=== PATIENT | female | born 2000 | race Caucasian/White ===

== ENCOUNTER → 2021-07-13 13:22 | Outpatient (BNVA) | payer MEDICAID, SELFPAY | PROVIDERS: Visit Provider Psychiatry & Neurology Psychiatry | DX: F43.12 Post-traumatic stress disorder, chronic (principal); F60.3 Borderline personality disorder; F33.2 Major depressive disorder, recurrent severe without psychotic features | CPT/HCPCS: 99204 ==

== ENCOUNTER 2022-05-05 23:16 | Emergency (ER) | payer BC, MEDICAID, SELFPAY ==
[2022-05-05 23:39] VITALS: BP 133/81; PULSE 122; RESP 18; TEMP 37.3; O2SAT 100; BMI 26.7
[2022-05-06 00:30] VITALS: BP 104/79; PULSE 112; RESP 16; O2SAT 100
--- NOTE | 2022-05-06 00:56 | XRR_ITS ---
PROCEDURE INFORMATION: Exam: XR Abdomen Exam date and time: 05/06/2022 1:31 AM Age: 22 years old Clinical indication: Abdominal pain; Localized; Left; Additional info: Left abdominal pain, recently constipated more TECHNIQUE: Imaging protocol: Radiologic exam of the abdomen. Views: Frontal supine view of the abdomen. 1 View. COMPARISON: No relevant prior studies available. FINDINGS: Gastrointestinal tract: There are no abnormally dilated loops of small bowel. There is moderate fecal stasis throughout the ascending and proximal transverse colon. The descending colon sigmoid are decompressed and contains a small amount of gas. Intraperitoneal space: There is no free air. There is an oblong density overlying the mid abdomen, spanning the entire diameter of the abdomen, likely outside of the patient and possibly part of the patient's garments. Bones/joints: Unremarkable. XR/XR abdomen 1V* [id number] IMPRESSION: 1. A nonobstructive bowel gas pattern. 2. Moderate fecal stasis throughout the ascending and proximal transverse colon.
--- NOTE | 2022-05-06 00:57 | ED_ITS ---
HPI - Abdominal Pain General: Chief Complaint: Abdominal Pain Stated Complaint: abdomen pain Time Seen by Provider: 05/06/22 00:16 Source: patient Mode of arrival: ambulatory Limitations: no limitations History of Present Illness: Patient presents emergency department today accompanied by her mother for evaluation treatment of left-sided abdominal pain. Patient states she has been having symptoms now for couple of days but denies any nausea, vomiting, or diarrhea. She actually indicates that she seems to be more constipated and while she has the urge to have a bowel movement, will often have to sit 20 to 30 minutes before passing any stool. She reports stool is hard and often in small balls. Patient does not typically drink any water. She reports primarily soda intake through the day. She denies any coffee but an occasional energy drink. Patient is still passing gas. She denies dysuria. Associated Symptoms: Reports constipation; Denies diarrhea and vomiting Review of Systems General: Reports: 10 or more systems reviewed and unremarkable except in HPI and below GI: Reports: abdominal pain (left side) and constipation; Denies: vomiting or diarrhea PFSH ED PFSH: Family History Denies family history of Colon cancer Ovarian cancer Diabetes Heart disease Hypercholesteremia Breast cancer Hypertension Uterine cancer Thyroid disease Stroke Physical Exam Const: COMMON NORMALS: no acute distress, patient oriented x3 and alert HENMT: COMMON NORMALS: normocephalic, atraumatic, hearing grossly normal bilaterally and moist oral mucous membranes HEAD & SCALP: normocephalic and atraumatic Eye: COMMON NORMALS: Equal, round and reactive pupils present, EOMs intact bilaterally and conjunctivae normal CONJUNCTIVA: Yes conjunctivae normal PUPIL: Yes Equal, round and reactive pupils present Neck/C-Spine: COMMON NORMALS: full ROM and no JVD Lymph: LYMPHATIC: no lymphadenopathy noted Resp: COMMON NORMALS: normal respiratory effort, No retractions, No use of accessory muscles and clear to auscultation bilaterally AUSCULTATION: clear to auscultation bilaterally Cardio: COMMON NORMALS: no JVD, regular rate and regular rhythm RATE: regular rate RHYTHM: regular rhythm GI: OTHER: Bowel sounds are present but slow. Patient is tender along the left abdomen without periumbilical pain, epigastric pain, right upper quadrant pain, right lower quadrant pain. Abdomen is soft. : COMMON NORMALS: Yes no CVA tenderness BLADDER/KIDNEY EXAM: Yes no CVA tenderness Back/Pelvis: COMMON NORMALS: no CVA tenderness, no thoracic nor lumbar tenderness and thoraco-lumbar ROM normal Extremity: COMMON NORMALS: normal to inspection, full ROM and capillary refill normal Neuro: COMMON NORMALS: patient oriented x3 SENSORIUM/ORIENTATION: Yes alert Psych: COMMON NORMALS: mental status grossly normal, Normal thought process present, cooperative, normal affect and activity/motor behavior normal THOUGHT PROCESS: Normal thought process present Skin: COMMON NORMALS: no rashes or lesions noted and no wounds GENERAL SKIN EXAM: no rashes or lesions noted Course Vital Signs: Vital signs: Vital Signs Temperature 99.1 F 05/05/22 23:39 Pulse Rate 112 H 05/06/22 00:30 Respiratory Rate 16 05/06/22 00:30 Blood Pressure 104/79 05/06/22 00:30 Pulse Oximetry 100 05/06/22 00:30 MDM - Abdominal Pain Medical Decision Making Patient presents to the emergency department today for evaluation treatment of left-sided abdominal pains. Patient had no urinary complaints and has not been running any fevers. She had had no vomiting but reported some concerns for constipation. Patient has very little clear fluid intake throughout the day per her report. Urinalysis is completely unremarkable for any acute concerns of kidney stone or UTI. X-ray shows circular balls of stool throughout the left colon and a large amount of accumulated stool in the right mid abdomen as well. Patient was given a prescription for MiraLAX. Encouraged multiple doses for the next day or 2 but, patient also needs to increase her clear fluid intake. Explained that without increase in fluid, this treatment will not work. Patient may wish to also do maintenance dosing with a capful every other day if needed. Patient was told to be seen and reevaluated again if she developed any back pain, vomiting, or fevers. Patient verbalized understanding and agreement to treatment plan. Differential Diagnosis Likely abdominal pain (UTI, pyelo), acute appendicitis, calculus of kidney, constipation and gastroenteritis Lab Data Labs/Radiology: Laboratory Results Urine Color Yellow (Yellow) 05/06/22 00:57 Urine Appearance Clear (CLEAR) 05/06/22 00:57 Urine pH 5 (5-7) 05/06/22 00:57 Ur Specific [place] 1.020 (1.005-1.030) 05/06/22 00:57 Urine Protein Neg (Negative) 05/06/22 00:57 Urine Glucose (UA) Norm (Normal) 05/06/22 00:57 Urine Ketones Negative (Negative) 05/06/22 00:57 Urine Blood Neg (Negative) 05/06/22 00:57 Urine Nitrate Negative (Negative) 05/06/22 00:57 Urine Bilirubin Neg (Negative) 05/06/22 00:57 Urine Urobilinogen Neg mg/dL (Negative) 05/06/22 00:57 Ur Leukocyte Esterase Negative (Negative) 05/06/22 00:57 Urine HCG, Qual Negative (Negative) 05/06/22 00:57 Discharge Plan Discharge Patient Disposition: Home Clinical Impression: Abdominal pain, Constipation Condition: Stable Prescriptions: New polyethylene glycol 3350 17 gram/dose powder 17 g PO DAILY Qty: 238 0RF No Action fluoxetine [Prozac] 20 mg capsule 20 mg PO DAILY Qty: 30 1RF trazodone 50 mg tablet 100 mg PO .HS PRN (Reason: insomnia) Qty: 60 1RF Discharge Orders: Discharge ED (Routine); Ordered 05/06/22 Ordered By: Abeba Angelo Referrals: Chrissie Sidhu MD [Primary Care Provider] - Discharge Diet: As Directed Discharge Activity: Increase activity as tolerated Patient Instructions: Constipation - Adult, High Fiber Diet (ED), Abdominal Pain (ED) Activity Restrictions/Additional Instructions: Urine is clear for any concerns of infection or kidney infection. X-ray today does show quite a bit of constipation throughout the length of your colon. I have prescribed you some medication to help facilitate bowel movements. Mix 1 capful of the MiraLAX into 8 ounces of clear liquids and drink all 8 ounces within 15 minutes. Do this 3 times a day. You need to increase your clear fluid intake in between these doses as reintroduction of water into the colon is how this medication works. Do this regimen for 2 days-unless you begin having multiple, regular soft bowel movements. After that, you may wish to have a dose every other day to promote regularity. Coding Level of Care Code ED Aging Department Supervisor for Arik Hendrix
[2022-05-06 01:04] LABS: Add Urine Microscopic? NO; Charge for UA Resulting for Rev
[2022-05-06 01:14] LABS: Bilirubin Urine Neg (Negative); Blood Urine Neg (Negative); Glucose Urine UA Norm (Normal); Ketones Urine Negative (Negative); Leukocyte Esterase Urine Negative (Negative); Nitrate Urine Negative (Negative); Protein Urine Neg (Negative); Urine Appearance Clear (CLEAR); Urine Color Yellow (Yellow); Urobilinogen Urine Neg (Negative); pH Urine 5 (5-7)
[2022-05-06 02:00] VITALS: BP 116/75; PULSE 97; RESP 16; O2SAT 99
== END 2022-05-06 02:06 | disposition home or self-care (01) ==
PROVIDERS: Emergency Provider Physician Assistant; PCP Family Medicine
DX: K59.00 Constipation, unspecified (principal); E11.9 Type 2 diabetes mellitus without complications; I11.0 Hypertensive heart disease with heart failure; I50.9 Heart failure, unspecified; E78.00 Pure hypercholesterolemia, unspecified; Z86.73 Personal history of transient ischemic attack (TIA), and cerebral infarction without residual deficits
CPT/HCPCS: 74018; 81003; 81025; 99283

== ENCOUNTER 2022-06-13 14:27 | Emergency (ER) | payer BC, MEDICAID, SELFPAY ==
[2022-06-13 14:58] VITALS: BP 128/83; PULSE 96; RESP 17; TEMP 37.2; O2SAT 99; BMI 27.6
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
[2022-06-13 15:28] VITALS: BP 122/70; PULSE 89; RESP 16; O2SAT 100
== END 2022-06-13 16:57 | disposition home or self-care (01) ==
PROVIDERS: Emergency Provider Physician Assistant; PCP Family Medicine
DX: S09.8XXA Other specified injuries of head, initial encounter (principal); W50.0XXA Accidental hit or strike by another person, initial encounter
CPT/HCPCS: 70450; 99284

== ENCOUNTER 2023-01-23 08:50 | Outpatient (CLI) | payer BC, MEDICAID, SELFPAY ==
--- NOTE | 2023-01-23 08:57 | US_ITS ---
WS: [id number] EARLY OBSTETRICAL ULTRASOUND (<14 WEEKS). HISTORY: SUPERVISION OF NORMAL FIRST /FIRST TRIMESTER COMPARISON: None available. Single intrauterine gestational sac is identified. Cardiac activity at [address] [place]-rump length kami sures 6.5 cm which corresponds to a gestation of 12w6d. Normal-appearing yolk sac and amnion demonstr ated. No subchorionic hemorrhage. No free fluid. Corpus luteal cyst RIGHT ovary measures 0.9 x 1.2 x 1.2 cm. IMPRESSION: 1. Single intrauterine gestation of 12 weeks 6 days with an EDC of 08/01/2023. 2. Normal cardiac activity.
== END 2023-01-23 08:51 | disposition home or self-care (01) ==
LOC: RAD 08:51
PROVIDERS: PCP Family Medicine; Visit Provider Family Medicine
DX: Z34.01 Encounter for supervision of normal first pregnancy, first trimester (principal)
CPT/HCPCS: 76801

== ENCOUNTER 2023-03-07 08:31 | Outpatient (CLI) | payer MEDICAID, SELFPAY ==
--- NOTE | 2023-03-07 08:37 | US_ITS ---
WS: [id number] OBSTETRICAL ULTRASOUND COMPLETE HISTORY: ANATOMY CHECK COMPARISON: 01/23/2023 Single intrauterine gestation in Cephalic presentation. Cervix is Closed and normal length. Cervical length is 4.9 cm. Normal amount of amniotic fluid surrounds the fetus. Placenta: Anterior, no previa or abruption. Placenta grade 0 Heart: 157 BPM. Four chambers are identified. Outflow tracts are not visualized. This is due to posit ion of the fetus and activity. Anatomy: Intracranial structures and spine are normal. kidneys, stomach and urinary bladd er are unremarkable. Abdominal wall, three-vessel cord and cord insertion site are normal. 4 extremities are present. profile: Not visualized. Gender: Female. measurements: BPD = 4.3 cm = 19w0d; HC = 16.0 cm = 18w6d; AC = 13.3 cm = 18w6d; FL = 2.9 cm = 19w0d; EFW: 262 g. Biometry is internally concordant. AGA by ultrasound: 19w0d MANAV by ultrasound: 08/01/2023 IMPRESSION: 1. Single intrauterine gestation of 19w0d with an MANAV of 08/01/2023. Appropriate growth since the rst trimester ultrasound. 2. Cardiac outflow tracts and profile are not well visualized. The remaining anatomy is normal .
== END 2023-03-07 08:32 | disposition home or self-care (01) ==
LOC: RAD 08:31
PROVIDERS: PCP Family Medicine; Visit Provider Family Medicine
DX: Z34.02 Encounter for supervision of normal first pregnancy, second trimester (principal)
CPT/HCPCS: 76805

== ENCOUNTER 2023-03-25 14:14 | Outpatient (CLI) | payer MEDICAID, SELFPAY ==
--- NOTE | 2023-03-25 14:21 | US_ITS ---
WS: [id number] ULTRASOUND OB FOCUSED HISTORY: Incomplete anatomy scan. COMPARISON: 03/07/2023 and 01/23/2023 Single intrauterine gestation is present in cephalic presentation. Normal amniotic fluid. heart rate at 159 BPM. Additional imaging of the profile is normal. Four-chamber heart is normal. Both outflow tracts are normal. IMPRESSION: Follow-up imaging of the heart and profile demonstrates no abnormality.
== END 2023-03-25 14:15 | disposition home or self-care (01) ==
LOC: RAD 14:14
PROVIDERS: PCP Family Medicine; Visit Provider Family Medicine
DX: Z36.2 Encounter for other antenatal screening follow-up (principal)
CPT/HCPCS: 76816

== ENCOUNTER 2023-07-24 13:20 | Inpatient (IN) | payer MEDICAID, SELFPAY ==
[2023-07-24] VITALS (21 sets, daily range): BP systolic 113–142; BP diastolic 70–88; PULSE 83–127; RESP 16–18; TEMP 35.9–36.1; BMI 33.9
[2023-07-24 12:07] LABS: Add Urine Microscopic? NO; Charge for UA Resulting for Rev
[2023-07-24 12:11] LABS: Basophils % 0.3 %; Eosinophils # 0.1 10^3/uL (0.0-0.8); Eosinophils % 0.5 %; Lymphocytes % 13.1 %; Mean Corpuscular HGB Conc 31.8 g/dL (30-55); Mean Corpuscular Volume 72.5 fl (85-98); Mean Platelet Volume 9.2 fL (7.4-10.4); Monocytes # 0.7 10^3/uL (0.2-0.9); Monocytes % 4.3 %; Neutrophils # 12.37 10^3/uL (1.8-7.7); Neutrophils % 80.8 %; Nucleated Red Blood Cells % 0 %; Platelet Count 355 10^3/cmm (157-399); Red Blood Count 4.69 10^6/uL (3.85-5.65); Red Cell Distribution Width 15.2 % (12.1-15.1)
[2023-07-24 12:31] LABS: Alanine Aminotransferase 9 U/L (0-33); Albumin Level 3.7 g/dL (3.5-5.2); Alkaline Phosphatase 186 U/L (35-105); Anion Gap 18.2 (5-19); Aspartate Amino Transferase 11 U/L (0-32); Blood Urea Nitrogen 5 mg/dL (6-20); Calcium 8.8 mg/dL (8.5-10.5); Carbon Dioxide 19 mmol/L (22-29); Chloride 104 mmol/L (98-107); Creatinine Clr Calc Pharmacy 230.4992; Globulin 3.3 g/dL (1.3-4.6); Glomerular Filtration Rate 199.6 mL/min (90-130); Glucose 127 mg/dL (65-115); Osmolality Calculated 283 mOsm/kg (285-295); Potassium 4.2 mmol/L (3.5-5.1); Sodium 137 mmol/L (136-145); Total Bilirubin 0.2 mg/dL (0.15-1.2); Uric Acid 3.5 mg/dL (2.4-5.7)
[2023-07-24 12:32] LABS: Urine Appearance Clear (CLEAR); Urine Color Yellow (Yellow); pH Urine 7 (5-7)
[2023-07-24 12:33] LABS: Bilirubin Urine Neg (Negative); Blood Urine Neg (Negative); Glucose Urine UA Norm (Normal); Ketones Urine Negative (Negative); Leukocyte Esterase Urine Negative (Negative); Nitrate Urine Negative (Negative); Protein Urine Neg (Negative); Specific Gravity, Urine 1.005 (1.005-1.030); Urobilinogen Urine Neg (Negative)
[2023-07-24 12:42] LABS: Urine Creatinine 87 mg/dL (28-217)
[2023-07-24 12:43] LABS: UPRO/UCREAT Ratio 0.34 mg/mg CR; Urine Protein Random 30 mg/dL
--- NOTE | 2023-07-24 13:05 | P.HP_ITS ---
Providers/Chief Complaint 2 Admitting Physician: Natalia Allen DO Primary Care Provider: Chrissie Sidhu MD Chief Complaint: High Blood Pressure in office HPI DERMATOLOGY NURSE History of Present Illness Bridgette Moore is a 23 year old female at 39w 5d based on sure LMP c/w 12wk US presenting for induction of labor. She was seen in office today and noted to have borderline elevated blood pressure. On presentation to L&D for pre-eclampsia work-up initial BP was elevated and urine protein/creatinine ratio was elevated at 0.3. Past medical history significant for history of depression/anxiety not currently on medication. care remarkable for pap smear with LSIL and ASC-cannot exclude HSIL- colposcopy completed and plan for colposcopy. care has been good and starting in the first trimester. Present Details : 1 Para: 0 Labs Blood type OB HPI: O (+) positive Rubella: Immune RPR: Negative GBS: Negative HBsAG: Negative Other Lab Information: HCV Ab negative HIV NR GC/Chlam negative Pap smear LSIL, ASC- cannot exclude HSIL- she had colposcopy with no advanced lesion VZV Immune Initial H/H 12.8/36.9 1 hr GTT passed (134) 3rd trimester H/H 11.1/33.0 Review of Systems 2 Const: Denies: fever(s) or chills Eyes: Denies: change in vision or blurry vision Card: Denies: chest pain or palpitations Resp: Denies: dyspnea GI: Denies: abdominal pain, nausea or vomiting Psych: Reports: anxiety; Denies: depression Medications/Allergies Home Medications Medication Instructions Recorded Confirmed Last Taken Type cafjeiiz-oby-Ms-FA 1 mg 1 tab PO DAILY 07/24/23 07/24/23 07/24/23 04:00 History tablet 1 tab Allergies Allergy/AdvReac Type Severity Reaction Status Date / Time No Allergies Allergy Mild None Uncoded 07/24/23 12:05 PFSH DERMATOLOGY NURSE 2 PFSH: Family History Denies family history of Colon cancer Ovarian cancer Diabetes Heart disease Hypercholesteremia Breast cancer Hypertension Uterine cancer Thyroid disease Stroke History History History 2 1 Term 0 0 Miscarriages/Ectopic 0 Living Children 0 Vitals/I&O/Wt Last Vital Signs Pulse 123 H 07/24/23 12:52 Resp 18 07/24/23 12:05 BP 122/80 07/24/23 12:52 Weight last 48 hrs Weight 191 lb 8 oz Physical Exam 2 Const: COMMON NORMALS: no acute distress, healthy appearing and alert Resp: COMMON NORMALS: normal respiratory effort and clear to auscultation bilaterally Cardio: COMMON NORMALS: regular rate, regular rhythm, S1 normal heart sound present, S2 normal heart sound present and No murmurs present (Cardio) Extremity: OTHER: Trace LE edema Data 07/24/23 11:52 07/24/23 11:52 Results Labs OB ([facility]): 2 Obstetrics US 03/25/23 Blood Type O Positive 07/24/23 Antibody Screen Negative 07/24/23 Hct 34.0 % (36-47) L 07/24/23 Hgb 10.80 g/dL (11.27-16.99) L 07/24/23 Rho(D) Type Rh positive 07/24/23 Plt Count 355 10^3/cmm (157-399) 07/24/23 Uric Acid 3.5 mg/dL (2.4-5.7) 07/24/23 A&P Assessment and plan (1) Term : (2) Preeclampsia: Plan 23yo at 39w5d admitted for induction of labor for pre-eclampsia without severe features. CMP, CBC generally wnl, Pr/Cr elevated at 0.34 with mildly elevated BP in office and one measurement here. Initial SVE 1/70/-3. FHT Category I. Plan for dose cytotec- recheck in 4 hours Intermittent EFM as long as Category I and no severe features. Fentanyl protocol, may have epidural when desired. Routine blood typing. Discussed plan of care and plan for induction with patient including risks and benefits and she is agreeable to proceed. Attestations 2 Medical Necessity Statement*: Bridgette Moore's hospital stay will require greater than 2 midnights for induction of labor, delivery and care. Coding Level of Care Code Acute Code for Chg Fwd Diagnoses Term Z34.90 Preeclampsia O14.90
[2023-07-24] MEDS: lactated ringers 500 ML 999 ML IV (13:18)
[2023-07-24] MEDS: miSOPROStol 100 mcg tablet 25 MCG VAGINAL ×2 (17:50→22:25)
[2023-07-25] VITALS (60 sets, daily range): BP systolic 103–140; BP diastolic 56–97; PULSE 64–144; RESP 17–18; TEMP 35.3–36.5; O2SAT 96
[2023-07-25] MEDS: lactated ringers 1,000 ML 999 ML IV ×2 (06:00→07:08)
[2023-07-25] MEDS: ROPivacaine syringe 100 MG/50 ML SYRINGE 10 MG EPIDURAL ×2 (07:10→10:34)
--- NOTE | 2023-07-25 07:58 | P.ANESASSM_ITS ---
Pre-Anesthetic Assessment Height/Weight: Height 1.6 m Weight 86.863 kg Temp Pulse Resp BP O2 Del Method 97.0 F L 72 16 112/67 Room Air 07/24/23 22:30 07/25/23 07:55 07/24/23 16:31 07/25/23 07:55 07/24/23 15:08 Familial anesthetic complications: none Was Beta Erik taken within 24 hours: N/A Was Clonidine taken within 24 hours: N/A Social No alcohol and No tobacco Exam alert, oriented x 3, clear to auscultation bilaterally and regular rate & rhythm Airway Submandibular: within normal limits Cervical ROM: within normal limits Mallampati: Class II Dentition: full CV/HEM Pre E Neuropsych Anxiety and Depression Anesthetic Plan ASA status: 2 Anesthesia: Regional (specify below) (Labor epidural) Medications/Allergies Home Medications Medication Instructions Recorded Confirmed Last Taken Type trudcyfd-ldi-Cx-FA 1 mg 1 tab PO DAILY 07/24/23 07/24/23 07/24/23 04:00 History tablet 1 tab Allergies Allergy/AdvReac Type Severity Reaction Status Date / Time No Allergies Allergy Mild None Uncoded 07/24/23 12:05 Current Medications Generic Name Dose Route Start Last Admin Trade Name Freq PRN Reason Stop Dose Admin Lactated Ringer's 1,000 mls @ 999 mls/hr 07/25/23 06:07 07/25/23 07:38 Lactated Ringers IV 500 mls/hr .Q1H1M PRN Infusion See label comments PFSH Anesthesia Family History Denies family history of Colon cancer Ovarian cancer Diabetes Heart disease Hypercholesteremia Breast cancer Hypertension Uterine cancer Thyroid disease Stroke Female Reproductive History : 1 Data Anesthesia 07/24/23 11:52 07/24/23 11:52 Short CBC 07/24/23 Range/Units 11:52 WBC 15.30 H (3.29-11.43) 10^3/uL Hgb 10.80 L (11.27-16.99) g/dL Hct 34.0 L (36-47) % MCV 72.5 L (85-98) fl Plt Count 355 (157-399) 10^3/cmm Neut % (Auto) 80.8 % Neut # (Auto) 12.37 H (1.8-7.7) 10^3/uL BMP 07/24/23 11:52 Sodium 137 Potassium 4.2 Chloride 104 Carbon Dioxide 19 L BUN 5 L Creatinine 0.4 L Glucose 127 H Calcium 8.8 Liver Function 07/24/23 Range/Units 11:52 Total Bilirubin 0.2 (0.15-1.2) mg/dL AST 11 (0-32) U/L ALT 9 (0-33) U/L Alkaline Phosphatase 186 H (35-105) U/L Albumin 3.7 (3.5-5.2) g/dL Urine 07/24/23 Range/Units 11:52 Urine Color Yellow (Yellow) Urine Appearance Clear (CLEAR) Urine pH 7 (5-7) Ur Specific [place] 1.005 (1.005-1.030) Urine Protein Neg (Negative) Urine Glucose (UA) Norm (Normal) Urine Ketones Negative (Negative) Urine Nitrate Negative (Negative) Urine Bilirubin Neg (Negative) Ur Leukocyte Esterase Negative (Negative) Blood Bank 07/24/23 11:52 Blood Type O Positive Rho(D) Type Rh positive Antibody Screen Negative Cardiac Studies: 2 No Data to Display Anesthesia Procedures Epidural Time Out Performed: Yes Consents Signed: Procedure Consent Consent: requested by attending/covering physician, from patient, risks and benefits reviewed and patient agrees to proceed Lumbar Level: L3-L4 Epidural position: sitting Epidural procedure: sterile prep of area, 1% lidocaine to numb the area, neg for paresthesia, test dose given, 1.5% xylocaine 1:200k epi, placed PCEA, no systemic response, sterile dressing applied and 0.2% Ropiavacaine @ mls/hr (13) Additional Comments: OSMAR aat 5cm, cath at 10cm, bolused 5mls of 2% lido
[2023-07-25] MEDS: dextrose 5%-lactated ringers 1,000 ML 125 ML IV (08:44)
[2023-07-25] MEDS: oxytocin 30 UNIT/500 ML BAG IV (08:54)
--- NOTE | 2023-07-25 14:22 | P.PCNOB_ITS ---
Delivery Note: Date of delivery: July 25, 2023 Pre-delivery diagnoses: Term Pre-eclampsia without severe features Post-delivery diagnoses: Term delivery of viable female Procedure: Spontaneous vaginal delivery Delivering Physician: Natalia Allen DO Estimated blood loss (mL): 150 Pre-Delivery Course: She was admitted on 07/24/2023 with a new diagnosis of preeclampsia without severe features. Initial SVE was 1/70/-3 and she was given 2 doses of Cytotec each 4 hours apart with subsequent SVE of 3/80/-3. At this time she was abhishek every 2 to 3 minutes with intensity increasing and so she was monitored until she requested an epidural. After placement of epidural her contractions were noted to decrease to every 4 minutes with and unchanged SVE and so low-dose Pitocin was started at that time. She then gradually progressed to SVE of 6/80/-3. At that time AROM was performed at 1240 with clear fluid. She then quickly progressed to complete. heart tones generally remained category 1 and was noted to have deep early and variables after AROM. Delivery: Patient progressed to complete. Patient placed in lithotomy position. Patient pushed with adequate effort. Head delivered in TRISTIAN position, no nuchal cord was present. Shoulders and rest of body delivered with gentle traction with adequate epidural anesthesia. noted to be with spontaneous cry. Mouth and nares bulb suctioned. placed on maternal abdomen. Cord clamped and cut after 1 minute delay. Placenta spontaneously delivered and intact. Pitocin started. Fundus was noted to be firm with massage. The vagina and cervix were inspected and no lacerations were noted. Few periurethral abrasions were noted. Small trickle bleeding was noted and lower uterine segment was swept free of clots. Following fundus was again noted to be firm. Female born at 1357 with 8/9 weighing 2910 g and measuring 20 in length 13.25 head circumference and 12.25 chest circumference. Placenta noted to be intact with centrally inserted umbilical cord and three- vessel cord. Complications: Maternal none Infant none History History History 1 Term 1 0 Miscarriages/Ectopic 0 Living Children 1 A&P Assessment and plan (1) Spontaneous vaginal delivery: Coding Level of Care Code Acute Code for Chg Fwd Diagnoses Spontaneous vaginal delivery O80
[2023-07-25] MEDS: ibuprofen 800 mg tablet PO ×2 (15:25→20:10)
[2023-07-25] MEDS: lanolin oint 7 gm 1 APPLIC TOPICAL (15:26)
[2023-07-25] MEDS: benzocaine-menthol 78 gm Canister 1 SPRAY TOPICAL (15:26)
--- NOTE | 2023-07-25 16:53 | PC.NURSE ---
assisted pt up to bathroom. void in toilet. terrell care discussed and performed by pt. dermaplast discussed and used by pt. pad, underwear, gown changed.
--- NOTE | 2023-07-25 18:00 | PC.NURSE ---
pt ambulated to OB7 for routine post care. Oriented to room and call light. Proud parent pack and feeding log gone over. Discussed visiting hours policy. Fresh ice water given.
[2023-07-25] MEDS: docusate sodium 100 mg Capsule PO (20:10)
[2023-07-26] VITALS: BP 121/81; PULSE 82
[2023-07-26 02:54] LABS: Hematocrit 29.2 % (36-47); Mean Corpuscular HGB Conc 31.5 g/dL (30-55); Mean Corpuscular Hemoglobin 22.9 pg (27-33); Mean Corpuscular Volume 72.6 fl (85-98); Mean Platelet Volume 8.9 fL (7.4-10.4); Platelet Count 288 10^3/cmm (157-399); Red Blood Count 4.02 10^6/uL (3.85-5.65); Red Cell Distribution Width 15.4 % (12.1-15.1); White Blood Count 15.49 10^3/uL (3.29-11.43)
[2023-07-26 04:00] VITALS: BP 114/72; PULSE 98; RESP 18; TEMP 36.6; TEMP 36.7; O2SAT 99
--- NOTE | 2023-07-26 07:30 | P.PN_ITS ---
PHARMACY SALES REPRESENTATIVE Subjective 2 Subjective: Interval history: Doing well overnight. She is ambulating without difficulty, tolerating normal diet without nausea. Bleeding is decreasing and about the amount of a period. Has voided without difficulty, passing gas but no bowel movement yet. infant and is going fairly well. Labor: Station: +2 Amniotic Membrane Status: Ruptured Monitor Mode: Palpation Contraction Pattern: Irregular Status: Category I Vitals/I&O/Wt Last Vital Signs Temp 98.0 F 07/26/23 16:00 Pulse 105 H 07/26/23 16:00 Resp 16 07/26/23 16:00 BP 123/81 07/26/23 16:00 Pulse Ox 99 07/26/23 04:00 O2 Del Method Room Air 07/26/23 16:00 Physical Exam 2 Const: COMMON NORMALS: no acute distress, healthy appearing and alert Resp: COMMON NORMALS: normal respiratory effort and clear to auscultation bilaterally AUSCULTATION: clear to auscultation bilaterally Cardio: COMMON NORMALS: regular rate, regular rhythm, S1 normal heart sound present, S2 normal heart sound present and No murmurs present (Cardio) RATE: regular rate RHYTHM: regular rhythm HEART SOUNDS: S1 normal heart sound present and S2 normal heart sound present : OTHER: Uterine fundus firm and at the umbilicus Extremity: OTHER: Trace LE edema Neuro: SENSORIUM/ORIENTATION: Yes alert Urinary Catheter Management: Haskins Latex: Cath Placed During This Visit: yes, but has since been removed by the nurse Reason for Continuing Indwelling Catheter: Decision to DC Catheter Urinary Catheter Date of Insertion: 07/25/23 Urinary Catheter Time of Insertion: 08:50 Date Urinary Catheter Removed: 07/25/23 Time Urinary Catheter Discontinued: 12:45 Data 07/26/23 02:45 07/24/23 11:52 A&P Assessment and plan (1) Spontaneous vaginal delivery: (2) Preeclampsia: (3) Anemia: Plan Encourage ambulation. May shower. On iron supplementation. BPs have been wnl. No severe features. Regular diet. Anticipate discharge home tomorrow. Attestations 2 Medical Necessity Statement*: Bridgette Moore's hospital stay will require greater than 2 midnights for induction of labor, delivery and care. Coding Level of Care Code Acute Code for Chg Fwd Diagnoses Spontaneous vaginal delivery O80 Preeclampsia O14.90 Anemia D64.9
--- NOTE | 2023-07-26 08:00 | ANE.PACU2 ---
Inpatient post-anesthesia follow up: Airway intact: Yes Vital signs: Temperature 98.1 F Pulse Rate 81 Respiratory Rate 16 Blood Pressure 119/77 Pulse Oximetry 99 Oxygen Delivery Me thod Room Air Oxygen Flow Rate Fraction of Inspir ed Oxygen Hydration adequate: Yes Nausea and vomiting: No Pain level: 1 Mental status: Baseline Epidural Start/End: Epidural Start Date: 07/25/23 Epidural Start Time: 06:45 Epidural End Date: 07/25/23 Epidural End Time: 16:54
[2023-07-26 09:50] VITALS: BP 123/78; PULSE 71; RESP 16; TEMP 36.5
[2023-07-26] MEDS: docusate sodium 100 mg Capsule PO ×2 (09:51→20:32)
[2023-07-26] MEDS: PRENATAL VIT NO.130/IRON/FOLIC 1 EACH TABLET PO (09:51)
[2023-07-26] MEDS: ferrous sulfate EC 325 mg Tablet PO (09:51)
[2023-07-26] MEDS: ibuprofen 800 mg tablet PO ×3 (09:51→20:32)
[2023-07-26 16:00] VITALS: BP 123/81; PULSE 105; RESP 16; TEMP 36.7
[2023-07-26 22:16] VITALS: BP 116/77; PULSE 102; TEMP 36.8; O2SAT 98
[2023-07-27 04:14] VITALS: BP 120/72; PULSE 98; RESP 16; TEMP 36.7; O2SAT 99
--- NOTE | 2023-07-27 10:09 | PM.OBGYDC ---
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 Initial SVE was 1/70/-3 and she was given 2 doses of Cytotec each 4 hours apart with subsequent SVE of 3/80/-3. At this time she was abhishek every 2 to 3 minutes with intensity increasing and so she was monitored until she requested an epidural. After placement of epidural her contractions were noted to decrease to every 4 minutes with and unchanged SVE and so low-dose Pitocin was started at that time. She then gradually progressed to SVE of 6/80/-3. At that time AROM was performed at 1240 with clear fluid. She then quickly progressed to complete. heart tones generally remained category 1 and was noted to have deep early and variables after AROM. Delivery: Patient progressed to complete. Patient placed in lithotomy position. Patient pushed with adequate effort. Head delivered in TRISTIAN position, no nuchal cord was present. Shoulders and rest of body delivered with gentle traction with adequate epidural anesthesia. noted to be with spontaneous cry. Mouth and nares bulb suctioned. placed on maternal abdomen. Cord clamped and cut after 1 minute delay. Placenta spontaneously delivered and intact. Pitocin started. Fundus was noted to be firm with massage. The vagina and cervix were inspected and no lacerations were noted. Few periurethral abrasions were noted. Small trickle bleeding was noted and lower uterine segment was swept free of clots. Following fundus was again noted to be firm. Female born at 1357 with 8/9 weighing 2910 g and measuring 20 in length 13.25 head circumference and 12.25 chest circumference. Placenta noted to be intact with centrally inserted umbilical cord and three-vessel cord. Complications: Maternal none Infant none course: Patient underwent on 07/25/23. course was uncomplicated. Following delivery patient ambulated well, tolerated a normal diet without nausea or vomiting. Pain was well controlled on PO medications, without issue, no leg/calf pain, no calf/leg swelling, normal urination, passing gas and normal bowel movements. Vaginal bleeding thin lochia and decreasing. labs significant for hemoglobin of 9.2 down from 10.8 on admission. She is started on iron supplementation and discharged on iron supplementation. Blood pressures remained within normal limits and did not develop any severe features. Follow-up planned for 2 and 6 weeks . Warning signs for endometritis, pre-eclampsia, DVT/PE, mastitis were reviewed, discussed additional warning signs including increased vaginal bleeding, worsening abdominal pain. Pelvic rest and activity precautions reviewed as well. She is discharged on 07/27/23 in stable condition. Information Peripartum Data: Infant Delivery Method: Vaginal Physical Exam Const: COMMON NORMALS: no acute distress, healthy appearing and alert Resp: COMMON NORMALS: normal respiratory effort and clear to auscultation bilaterally AUSCULTATION: clear to auscultation bilaterally Cardio: COMMON NORMALS: regular rate, regular rhythm, S1 normal heart sound present, S2 normal heart sound present and No murmurs present (Cardio) RATE: regular rate RHYTHM: regular rhythm HEART SOUNDS: S1 normal heart sound present and S2 normal heart sound present : OTHER: Uterine fundus firm and at the umbilicus Extremity: OTHER: Trace LE edema Neuro: SENSORIUM/ORIENTATION: Yes alert Urinary Catheter Management: Haskins Latex: Cath Placed During This Visit: yes, but has since been removed by the nurse Reason for Continuing Indwelling Catheter: Decision to DC Catheter Urinary Catheter Date of Insertion: 07/25/23 Urinary Catheter Time of Insertion: 08:50 Date Urinary Catheter Removed: 07/25/23 Time Urinary Catheter Discontinued: 12:45 History History History 1 Term 1 0 Miscarriages/Ectopic 0 Living Children 1 Discharge Data Studies Completed and Pending Laboratory Results WBC 15.49 10^3/uL (3.29-11.43) H 07/26/23 02:45 RBC 4.02 10^6/uL (3.85-5.65) 07/26/23 02:45 Hgb 9.20 g/dL (11.27-16.99) L 07/26/23 02:45 Hct 29.2 % (36-47) L 07/26/23 02:45 MCV 72.6 fl (85-98) L 07/26/23 02:45 MCH 22.9 pg (27-33) L 07/26/23 02:45 MCHC 31.5 g/dL (30-55) 07/26/23 02:45 RDW 15.4 % (12.1-15.1) H 07/26/23 02:45 Plt Count 288 10^3/cmm (157-399) 07/26/23 02:45 MPV 8.9 fL (7.4-10.4) 07/26/23 02:45 Neut % (Auto) 80.8 % 07/24/23 11:52 Lymph % (Auto) 13.1 % 07/24/23 11:52 [place] % (Auto) 4.3 % 07/24/23 11:52 Eos % (Auto) 0.5 % 07/24/23 11:52 Baso % (Auto) 0.3 % 07/24/23 11:52 Neut # (Auto) 12.37 10^3/uL (1.8-7.7) H 07/24/23 11:52 Lymph # (Auto) 2.0 10^3/uL (0.8-4.8) 07/24/23 11:52 [place] # (Auto) 0.7 10^3/uL (0.2-0.9) 07/24/23 11:52 Eos # (Auto) 0.1 10^3/uL (0.0-0.8) 07/24/23 11:52 Baso # (Auto) 0.0 10^3/uL (0.0-0.1) 07/24/23 11:52 Nucleated RBC % (auto) 0 % 07/24/23 11:52 Nucleated RBCs # 0.0 /100WBC 07/24/23 11:52 Sodium 137 mmol/L (136-145) 07/24/23 11:52 Potassium 4.2 mmol/L (3.5-5.1) 07/24/23 11:52 Chloride 104 mmol/L (98-107) 07/24/23 11:52 Carbon Dioxide 19 mmol/L (22-29) L 07/24/23 11:52 Anion Gap 18.2 (5-19) 07/24/23 11:52 BUN 5 mg/dL (6-20) L 07/24/23 11:52 Creatinine 0.4 mg/dL (0.5-0.9) L 07/24/23 11:52 GFR Calculation 199.6 mL/min (90-130) H 07/24/23 11:52 Glucose 127 mg/dL (65-115) H 07/24/23 11:52 Calculated Osmolality 283 mOsm/kg (285-295) L 07/24/23 11:52 Uric Acid 3.5 mg/dL (2.4-5.7) 07/24/23 11:52 Calcium 8.8 mg/dL (8.5-10.5) 07/24/23 11:52 Total Bilirubin 0.2 mg/dL (0.15-1.2) 07/24/23 11:52 AST 11 U/L (0-32) 07/24/23 11:52 ALT 9 U/L (0-33) 07/24/23 11:52 Alkaline Phosphatase 186 U/L (35-105) H 07/24/23 11:52 Total Protein 7.0 g/dL (6.6-8.7) 07/24/23 11:52 Albumin 3.7 g/dL (3.5-5.2) 07/24/23 11:52 Globulin 3.3 g/dL (1.3-4.6) 07/24/23 11:52 Urine Color Yellow (Yellow) 07/24/23 11:52 Urine Appearance Clear (CLEAR) 07/24/23 11:52 Urine pH 7 (5-7) 07/24/23 11:52 Ur Specific [place] 1.005 (1.005-1.030) 07/24/23 11:52 Urine Protein Neg (Negative) 07/24/23 11:52 Urine Glucose (UA) Norm (Normal) 07/24/23 11:52 Urine Ketones Negative (Negative) 07/24/23 11:52 Urine Blood Neg (Negative) 07/24/23 11:52 Urine Nitrate Negative (Negative) 07/24/23 11:52 Urine Bilirubin Neg (Negative) 07/24/23 11:52 Urine Urobilinogen Neg mg/dL (Negative) 07/24/23 11:52 Ur Leukocyte Esterase Negative (Negative) 07/24/23 11:52 U Random Total Protein 30 mg/dL 07/24/23 11:52 Urine Creatinine 87 mg/dL (28-217) 07/24/23 11:52 Protein/Creatinin Ratio 0.34 mg/mg CR 07/24/23 11:52 Blood Type O Positive 07/24/23 11:52 Rho(D) Type Rh positive 07/24/23 11:52 Antibody Screen Negative 07/24/23 11:52 Vitals Last Vital Signs Temp 98.0 F 07/27/23 04:14 Pulse 98 07/27/23 04:14 Resp 16 07/27/23 04:14 BP 120/72 07/27/23 04:14 Pulse Ox 99 07/27/23 04:14 O2 Del Method Room Air 07/27/23 04:14 Results Labs OB ([facility]): Obstetrics US 03/25/23 Blood Type O Positive 07/24/23 Antibody Screen Negative 07/24/23 Hct 29.2 % (36-47) L 07/26/23 Hgb 9.20 g/dL (11.27-16.99) L 07/26/23 Rho(D) Type Rh positive 07/24/23 Plt Count 288 10^3/cmm (157-399) 07/26/23 Uric Acid 3.5 mg/dL (2.4-5.7) 07/24/23 Discharge Plan Discharge Patient Disposition: Home Condition: Stable Prescriptions: New ibuprofen 800 mg Tablet 800 mg PO TID Qty: 90 0RF docusate sodium 100 mg Capsule 100 mg PO BID Qty: 60 0RF ferrous sulfate 325 mg (65 mg iron) Tablet,Delayed Release (Dr/Ec) 325 mg PO DAILY Qty: 90 0RF Continued [id number] 1 mg Tablet 1 tab PO DAILY Discharge Orders: Discharge Order (Routine); Ordered 07/27/23 Ordered By: Natalia Allen Referrals: Natalia Allen DO [Primary Care Provider] - 08/08/23 2:45 pm (Patient to see Dr. Allen on August 07 at 2:45 PM for two week follow up Patient to see Dr. Allen on September 08 at 2:30 PM for six week follow up) Discharge Diet: Regular Discharge Activity: Increase activity as tolerated Patient Instructions: Depression (DC), Opioid Safety (DC), Preeclampsia and Eclampsia After Delivery (GEN), Hemorrhage (DC), OB Discharge Report, OB Food/Drug Interaction Guide, OB Care at Home, Opioid Safety, OB Vaginal Deliveries, Abnormal Bleeding Activity Restrictions/Additional Instructions: Pelvic rest for 6 weeks. Follow-up with Dr. Allen at 2 and 6 weeks . Discharge Attestations [employer] MACHINE TENDER Time Spent in Discharge Care*: less than 30 min Coding Level of Care Code Acute Code for Chg Fwd Diagnoses Spontaneous vaginal delivery O80 Preeclampsia O14.90 Anemia D64.9
[2023-07-27 12:15] VITALS: BP 119/77; PULSE 81; RESP 16; TEMP 36.7
== END 2023-07-27 11:25 | disposition home or self-care (01) | DRG 807 ==
LOC: OPOB 13:24 → OBGYN 13:24
PROVIDERS: Admitting Provider Family Medicine; PCP Family Medicine; Visit Provider Family Medicine
DX: O14.04 Mild to moderate pre-eclampsia, complicating childbirth (principal); Z37.0 Single live birth; Z3A.39 39 weeks gestation of pregnancy; O90.81 Anemia of the puerperium; D64.9 Anemia, unspecified; O72.1 Other immediate postpartum hemorrhage; O71.82 Other specified trauma to perineum and vulva
CPT/HCPCS: 36415; 51702; 59025; 59409; 80053; 81003; 82570; 84156; 84550; 85025; 85027; 86850; 86900; 99211; J2590; J2795; J7120; J7121

== ENCOUNTER → 2023-09-12 09:40 | Outpatient (BNVA) | payer MEDICAID, SELFPAY | PROVIDERS: PCP Family Medicine; Referring Provider Family Medicine; Visit Provider Nurse Practitioner Women's Health | DX: Z30.9 Encounter for contraceptive management, unspecified (principal) | CPT/HCPCS: 81025 ==